=== PATIENT | female | born 1970 | race African-American/Black ===

== ENCOUNTER 2021-11-03 04:29 | Day surgery (SDC) | payer BC ==
[2021-11-01 14:29] VITALS: BMI 34.2
[2021-11-03] MEDS ORDERED: LIDOCAINE HCL 1% PRESERVATIVE FREE - 30ML VIAL IJ ONE (11:40)
[2021-11-03] MEDS ORDERED: IOHEXOL 180 MG/1 ML ML IJ ONE (11:40)
[2021-11-03] MEDS ORDERED: BUPIVACAINE HCL/PF 0.75% 10 ML VIAL PNB ONE (11:40)
[2021-11-03 12:08] VITALS: BP 116/54; PULSE 83; TEMP 98.7
== END 2021-11-03 12:24 | disposition home or self-care (01) ==
LOC: JASU-SURG 04:29
PROVIDERS: ATTEND Pain Medicine Pain Medicine
PROC: 3E0T33Z Introduction of Anti-inflammatory into Peripheral Nerves and Plexi, Percutaneous Approach (ICD-10-PCS; 2021-11-03)
PROC: 3E0T3BZ Introduction of Anesthetic Agent into Peripheral Nerves and Plexi, Percutaneous Approach (ICD-10-PCS; principal; 2021-11-03 13:00)
DX: M47.816 Spondylosis without myelopathy or radiculopathy, lumbar region (principal)
CPT/HCPCS: 76000-TC-FY